=== PATIENT | male | born 1970 | race African-American/Black ===

== ENCOUNTER 2017-06-27 04:21 | Emergency (ER) | payer MEDICAID ==
[~2017-06-27] VITALS: Ht 170.2 cm; Wt 97.5 kg
[2017-06-27 04:32] VITALS: BP 158/99
== END 2017-06-27 06:16 | disposition left against medical advice (07) ==
LOC: ER 04:31
DX: R10.9 Unspecified abdominal pain (principal); Z53.21 Procedure and treatment not carried out due to patient leaving prior to being seen by health care provider

== ENCOUNTER 2017-06-27 08:08 | Emergency (ER) | payer MEDICAID ==
[~2017-06-27] VITALS: Ht 182.9 cm; Wt 108.9 kg
[2017-06-27 10:20] LABS: Urine Bilirubin Negative (Negative); Urine Blood TRACE /uL (Negative); Urine Color Yellow (Yellow); Urine Glucose Normal (Normal); Urine Ketone Negative (Negative); Urine Nitrite Negative (Negative); Urine RBC 4 /hpf (0 - 3); Urine Squamous Epithelial Cell FEW /hpf (<5); Urine Urobilinogen Normal (Negative)
[2017-06-27] MEDS ORDERED: SODIUM CHLORIDE 0.9% 1,000 ML IV ONE (10:31)
[2017-06-27] MEDS ORDERED: PROMETHAZINE HCL 25 MG/ML 1ML IV PRN (10:45)
[2017-06-27] MEDS ORDERED: KETOROLAC TROMETH 30 MG/ML 1ML VIAL IV ONE (10:45)
[2017-06-27 10:58] LABS: Hematocrit 53.2 % (41.0-53.0); Hemoglobin 18.1 g/dL (13.5-17.5); Mean Corpuscular Hemoglobin 31.6 pg (28.0-32.0); Mean Corpuscular Volume 92.8 fL (80.0-100.0); Mean Platelet Volume 8.1 fL (6.9-10.8); Platelet Count (auto) 272 10^3/uL (140-450); Red Cell Distribution Width 13.4 % (11.8-14.3); White Blood Cell 8.6 10^3/uL (4.4-10.8)
[2017-06-27 10:59] LABS: Metamyelocytes % 0; Myelocytes % 0; Promyelocytes % 0; Reactive Lymphocytes 0
[2017-06-27 11:15] LABS: Platelet Estimate Adequate
[2017-06-27 11:16] LABS: Albumin 3.8 g/dL (3.4-5.0); Bilirubin, Total 0.4 mg/dL (0.2-1.0); Calcium 8.7 mg/dL (8.5-10.1); Magnesium 2.6 mg/dL (1.6-2.6); Potassium 4.6 mmol/L (3.5-5.1); Total Protein 8.1 g/dL (6.4-8.2)
[2017-06-27 11:28] VITALS: BP 167/108
== END 2017-06-27 12:44 | disposition left against medical advice (07) ==
LOC: ER 08:08 → EDUNIT# 08:08 → EDBD 08:08 → ER 12:44
DX: R10.13 Epigastric pain (principal); I10 Essential (primary) hypertension; F17.210 Nicotine dependence, cigarettes, uncomplicated; E78.5 Hyperlipidemia, unspecified; Z90.49 Acquired absence of other specified parts of digestive tract; Z87.442 Personal history of urinary calculi; Z76.5 Malingerer [conscious simulation]
CPT/HCPCS: 36415; 71020; 74176; 80053; 81001; 83690; 83735; 85007; 85027; 93005; 94761; 96361; 96374; 96375; 99285; J1885; J2550; J7030

== ENCOUNTER 2023-03-15 15:41 | Inpatient (IN) | payer MEDICAID ==
[~2023-03-15] VITALS: Ht 182.9 cm; Wt 84.2 kg
[2023-03-15] MEDS ORDERED: PANTOPRAZOLE 40 MG/10 ML VIAL INJ IV ONE (16:30)
[2023-03-15] MEDS ORDERED: ONDANSETRON HCL 4 MG/2 ML VIAL IV ONE (16:30)
[2023-03-15] MEDS ORDERED: SODIUM CHLORIDE 0.9% 2,000 ML IV ONE (16:30)
[2023-03-15] MEDS ORDERED: MAALOX PLUS or MAALOX 30 ML PO ONE (16:30)
[2023-03-15 16:57] LABS: Basophils # (auto) 0.1 10 ^3/uL (0-0.2); Basophils % (auto) 0.9 % (0.0-2.0); Lymphocytes # (auto) 1.8 10 ^3/uL (0.4-5.4)
[2023-03-15 16:59] LABS: Eosinophils # (auto) 0 10 ^3/uL (0-0.8); Eosinophils % (auto) 0.7 % (0.0-7.0); Hematocrit 52.2 % (41.0-53.0); Hemoglobin 18.3 g/dL (13.5-17.5); Lymphocytes % (auto) 26.6 % (10.0-50.0); Mean Corpuscular Hemoglobin 31.8 pg (28.0-32.0); Monocytes # (auto) 0.6 10 ^3/uL (0-1.3); Monocytes % (auto) 8.7 % (0.0-12.0); Neutrophils # (auto) 4.2 10 ^3/uL (1.6-8.6); Neutrophils % (auto) 63.1 % (37.0-80.0); Nucleated Red Blood Cells % 0.7 %; Red Blood Cells 5.73 10^6/uL (4.5-5.90); Red Cell Distribution Width 13.4 % (11.8-14.3); White Blood Cell 6.7 10^3/uL (4.4-10.8)
[2023-03-15 17:12] LABS: Albumin 3.3 g/dL (3.4-5.0); BUN/Creatinine Ratio 10.7 (10.0-20.0); Calcium 9.1 mg/dL (8.5-10.1)
[2023-03-15 17:14] LABS: Bilirubin, Total 0.7 mg/dL (0.2-1.0); Total Protein 7.7 g/dL (6.4-8.2)
[2023-03-15 17:21] LABS: Potassium 2.8 mmol/L (3.5-5.1)
[2023-03-15] MEDS ORDERED: POTASSIUM CHL 20 Meq TABLET PO ONE (17:30)
[2023-03-15] MEDS ORDERED: fentaNYL CITRATE 100 MCG/2 ML VL IV ONE (21:30)
[2023-03-15] MEDS ORDERED: KETOROLAC TROMETH 30 MG/ML 1ML VIAL IV ONE (21:30)
[2023-03-15 23:33] LABS: Urine Bacteria NONE SEEN /hpf (None Seen); Urine Blood Negative /uL (Negative); Urine Specific Gravity 1.019 (1.001-1.035); Urine WBC 6 /hpf (0 - 3)
[2023-03-16] MEDS ORDERED: hydrALAZINE HCL 20 MG/ML VL IV ONE
[2023-03-16] MEDS ORDERED: NITROGLYCERIN 0.4 MG SL TAB SL PRN (02:30)
[2023-03-16] MEDS ORDERED: ONDANSETRON HCL 4 MG/2 ML VIAL IV PRN (02:30)
[2023-03-16] MEDS ORDERED: MORPHINE SULFATE INJ 2 MG/ml SYRG IV PRN ×2 (02:30)
[2023-03-16] MEDS ORDERED: ACETAMINOPHEN 325 MG TAB PO PRN (02:30)
[2023-03-16] MEDS: SODIUM CHLORIDE 0.9% 1,000 ML IV SCH ×3 (03:18→19:59)
[2023-03-16] MEDS: levoFLOXacin 500MG 100 ML IV SCH (03:18)
[2023-03-16] MEDS: HYDROcodone-ACET 5/325MG TAB PO PRN (08:21)
[2023-03-16] MEDS: ENOXAPARIN SOD 40 MG/0.4 ML SYRINGE SC SCH (10:29)
[2023-03-17] MEDS: SODIUM CHLORIDE 0.9% 1,000 ML IV SCH ×3 (03:30→20:27)
[2023-03-17] MEDS: hydrALAZINE HCL 20 MG/ML VL IV PRN ×3 (04:30→21:23)
[2023-03-17 05:00] VITALS: BP 175/123
[2023-03-17 05:45] LABS: Basophils # (auto) 0 10 ^3/uL (0-0.2); Basophils % (auto) 0.4 % (0.0-2.0); Eosinophils # (auto) 0.1 10 ^3/uL (0-0.8); Hematocrit 42.4 % (41.0-53.0); Hemoglobin 14.6 g/dL (13.5-17.5); Lymphocytes # (auto) 2.1 10 ^3/uL (0.4-5.4); Lymphocytes % (auto) 35.3 % (10.0-50.0); Mean Corpuscular Hemoglobin 32.1 pg (28.0-32.0); Mean Corpuscular Hgb Conc. 34.4 g/dL (32.0-36.0); Mean Corpuscular Volume 93.2 fL (80.0-100.0); Monocytes # (auto) 0.5 10 ^3/uL (0-1.3); Monocytes % (auto) 9.2 % (0.0-12.0); Neutrophils # (auto) 3.2 10 ^3/uL (1.6-8.6); Neutrophils % (auto) 53.1 % (37.0-80.0); Nucleated Red Blood Cells % 0.1 %; Red Blood Cells 4.55 10^6/uL (4.5-5.90); Red Cell Distribution Width 13.2 % (11.8-14.3)
[2023-03-17 06:03] LABS: Potassium 3.9 mmol/L (3.5-5.1)
[2023-03-17 06:12] LABS: Albumin 2.9 g/dL (3.4-5.0); BUN/Creatinine Ratio 9.3 (10.0-20.0); Bilirubin, Total 0.6 mg/dL (0.2-1.0); Calcium 8.2 mg/dL (8.5-10.1); Total Protein 6.2 g/dL (6.4-8.2)
[2023-03-17 09:14] VITALS: BP 176/100
[2023-03-17] MEDS: PANTOPRAZOLE 40 MG TAB PO SCH (10:03)
[2023-03-17] MEDS: LOSARTAN POTASSIUM 25 MG TAB PO SCH (10:04)
[2023-03-17] MEDS: levoFLOXacin 500MG 100 ML IV SCH (10:04)
[2023-03-17] MEDS: ENOXAPARIN SOD 40 MG/0.4 ML SYRINGE SC SCH (10:04)
[2023-03-17 13:00] VITALS: BP 170/100
[2023-03-17] MEDS ORDERED: LOSARTAN POTASSIUM 25 MG TAB PO ONE (16:45)
[2023-03-17 17:08] VITALS: BP 153/102
[2023-03-17] MEDS: HYDROcodone-ACET 5/325MG TAB PO PRN (20:24)
[2023-03-17 22:00] VITALS: BP 170/111
[2023-03-17 22:50] VITALS: BP 163/91
[2023-03-18] MEDS: hydrALAZINE HCL 20 MG/ML VL IV PRN (01:21)
[2023-03-18] MEDS ORDERED: cloNIDine HCL 0.1 MG TAB PO PRN ×2 (03:30→03:45)
[2023-03-18] MEDS: SODIUM CHLORIDE 0.9% 1,000 ML IV SCH ×2 (04:30→12:53)
[2023-03-18 05:11] VITALS: BP 163/101
[2023-03-18 09:00] VITALS: BP 164/143
[2023-03-18] MEDS ORDERED: cefTRIAXone 1GM/50ML D5W 50 ML IV SCH (09:00)
[2023-03-18] MEDS: PANTOPRAZOLE 40 MG TAB PO SCH (09:11)
[2023-03-18] MEDS: ENOXAPARIN SOD 40 MG/0.4 ML SYRINGE SC SCH (09:12)
[2023-03-18] MEDS: LOSARTAN POTASSIUM 25 MG TAB PO SCH (09:12)
[2023-03-18] MEDS ORDERED: LACTULOSE 20Gm/30ML SOLN PO SCH (10:00)
[2023-03-18] MEDS ORDERED: LOSARTAN POTASSIUM 25 MG TAB PO ONE (12:45)
[2023-03-18] MEDS ORDERED: CLON0.1T PO ×2 (12:50)
[2023-03-18] MEDS ORDERED: LOSA50TA46 PO (12:50)
[2023-03-18 13:00] VITALS: BP 169/84
[2023-03-18 15:38] VITALS: BP 175/99
[2023-03-19] MEDS ORDERED: LOSARTAN POTASSIUM 50 MG TAB PO SCH (10:00)
== END 2023-03-18 16:24 | disposition home or self-care (01) | DRG 465 ==
LOC: ER 15:41 → EDBD 15:41 → TELE 03-16 02:29 → TELE-WESTW 03-16 22:42
PROVIDERS: ADMIT Internal Medicine; ATTEND Internal Medicine
DX: N20.0 Calculus of kidney (principal); K56.7 Ileus, unspecified; K74.60 Unspecified cirrhosis of liver; E87.6 Hypokalemia; I10 Essential (primary) hypertension; E78.5 Hyperlipidemia, unspecified; F17.210 Nicotine dependence, cigarettes, uncomplicated; I16.0 Hypertensive urgency; F19.10 Other psychoactive substance abuse, uncomplicated; K57.30 Diverticulosis of large intestine without perforation or abscess without bleeding; N39.0 Urinary tract infection, site not specified; Z88.0 Allergy status to penicillin; Z87.442 Personal history of urinary calculi; Z90.49 Acquired absence of other specified parts of digestive tract; Z91.199 Patient's noncompliance with other medical treatment and regimen due to unspecified reason
CPT/HCPCS: 36415; 74018; 74176; 80053; 81001; 83690; 85025; 93005; 99291; C9113; G0378; J0696; J1885; J1956; J2405

== ENCOUNTER 2023-06-05 20:39 | Inpatient (IN) | payer MEDICAID ==
[~2023-06-05] VITALS: Ht 170.2 cm; Wt 82.5 kg
[~2023-06-05 20:39] MED LIST: LOSA50TA46 PO
[2023-06-05 22:09] LABS: Basophils # (auto) 0.1 10 ^3/uL (0-0.2); Basophils % (auto) 1.2 % (0.0-2.0); Eosinophils # (auto) 0.1 10 ^3/uL (0-0.8); Eosinophils % (auto) 2.1 % (0.0-7.0); Hematocrit 43.7 % (41.0-53.0); Lymphocytes # (auto) 2.7 10 ^3/uL (0.4-5.4); Lymphocytes % (auto) 39.2 % (10.0-50.0); Mean Corpuscular Hemoglobin 31.9 pg (28.0-32.0); Mean Corpuscular Hgb Conc. 34.3 g/dL (32.0-36.0); Mean Corpuscular Volume 93.2 fL (80.0-100.0); Monocytes # (auto) 0.6 10 ^3/uL (0-1.3); Monocytes % (auto) 8.6 % (0.0-12.0); Neutrophils # (auto) 3.4 10 ^3/uL (1.6-8.6); Neutrophils % (auto) 48.9 % (37.0-80.0); Nucleated Red Blood Cells % 0.1 %; Red Blood Cells 4.69 10^6/uL (4.5-5.90); Red Cell Distribution Width 13.1 % (11.8-14.3); White Blood Cell 6.9 10^3/uL (4.4-10.8)
[2023-06-05 22:23] LABS: Alanine Aminotransferase 13 U/L (7-40); Alkaline Phosphatase 94 U/L (46-116); Anion Gap 3.6 (5-15); Aspartate Aminotransferase 13 U/L (13-40); BUN/Creatinine Ratio 10.3 (10.0-20.0); Bilirubin, Total 0.2 mg/dL (0.2-1.0); Blood Urea Nitrogen 12 mg/dL (9-23); Calcium 8.8 mg/dL (8.5-10.1); Carbon Dioxide 30.4 mmol/L (20-30); Chloride 107 mmol/L (98-107); Glucose 93 mg/dL (74-106); Lipase 47 U/L (12-53); Potassium 3.3 mmol/L (3.5-5.1); Sodium 141 mmol/L (136-145)
[2023-06-05 22:24] LABS: Total Protein 6.7 g/dL (5.7-8.2)
[2023-06-05] MEDS ORDERED: KETOROLAC TROMETH 30 MG/ML 1ML VIAL IV ONE (22:45)
[2023-06-05] MEDS ORDERED: LACTATED RINGER'S 1,000 ML IV ONE (22:45)
[2023-06-06] VITALS (7 sets, daily range): BP systolic 154–174; BP diastolic 85–91; PULSE 63–78; RESP 12–16; TEMP 97.9–98.3; O2SAT 94–98
[2023-06-06] MEDS ORDERED: NITROGLYCERIN 0.4 MG SL TAB SL PRN (02:15)
[2023-06-06] MEDS ORDERED: ACETAMINOPHEN 325 MG TAB PO PRN (02:15)
[2023-06-06] MEDS ORDERED: ONDANSETRON HCL 4 MG/2 ML VIAL IV PRN (02:15)
[2023-06-06] MEDS ORDERED: DOCUSATE SOD 100 MG CAP PO PRN (02:15)
[2023-06-06] MEDS ORDERED: MORPHINE SULFATE INJ 2 MG/ml SYRG IV PRN (02:15)
[2023-06-06 04:45] LABS: Basophils # (auto) 0.1 10 ^3/uL (0-0.2); Basophils % (auto) 0.8 % (0.0-2.0); Eosinophils # (auto) 0.2 10 ^3/uL (0-0.8); Eosinophils % (auto) 2.7 % (0.0-7.0); Hematocrit 43.8 % (41.0-53.0); Hemoglobin 15.1 g/dL (13.5-17.5); Lymphocytes # (auto) 3.1 10 ^3/uL (0.4-5.4); Mean Corpuscular Hemoglobin 32.5 pg (28.0-32.0); Mean Corpuscular Hgb Conc. 34.6 g/dL (32.0-36.0); Monocytes # (auto) 0.5 10 ^3/uL (0-1.3); Monocytes % (auto) 7.9 % (0.0-12.0); Neutrophils # (auto) 2.8 10 ^3/uL (1.6-8.6); Neutrophils % (auto) 42.6 % (37.0-80.0); Nucleated Red Blood Cells % 0.1 %; Red Blood Cells 4.66 10^6/uL (4.5-5.90); Red Cell Distribution Width 13.3 % (11.8-14.3); White Blood Cell 6.7 10^3/uL (4.4-10.8)
[2023-06-06 05:03] LABS: Alanine Aminotransferase 14 U/L (7-40); Alkaline Phosphatase 98 U/L (46-116); Anion Gap 1.6 (5-15); Aspartate Aminotransferase 16 U/L (13-40); BUN/Creatinine Ratio 9.8 (10.0-20.0); Bilirubin, Total 0.4 mg/dL (0.2-1.0); Blood Urea Nitrogen 12 mg/dL (9-23); Calcium 8.8 mg/dL (8.7-10.4); Carbon Dioxide 34.4 mmol/L (20-30); Chloride 105 mmol/L (98-107); Glucose 91 mg/dL (74-106); Potassium 3.5 mmol/L (3.5-5.1); Sodium 141 mmol/L (136-145); Total Protein 6.7 g/dL (5.7-8.2)
[2023-06-06] MEDS: SODIUM CHLOR 0.9% PF (SALINE LOCK) 10ML VIAL/SYR IV SCH ×3 (05:49→22:00)
[2023-06-06] MEDS ORDERED: levoFLOXacin 500MG 100 ML IV ONE (11:00)
[2023-06-06] MEDS ORDERED: TAMSULOSIN HYDROCHLORIDE 0.4 MG CAP PO ONE (11:00)
[2023-06-06] MEDS: MORPHINE SULFATE INJ 2 MG/ml SYRG IV PRN (11:47)
[2023-06-06] MEDS: HYDROcodone-ACET 5/325MG TAB PO PRN (15:45)
[2023-06-06 16:12] LABS: Amphetamine Screen, Urine Pos (NEGATIVE); Barbiturate Scree,Urine Neg (NEGATIVE); Benzodiazephine Screen, Urine Neg (NEGATIVE); Cannabinoid Screen, Urine Pos (NEGATIVE); Cocaine Screen, Urine Neg (NEGATIVE); Opiate Scree,Urine Neg (NEGATIVE); Phencyclidine Screen, Urine Neg (NEGATIVE)
[2023-06-06 16:14] LABS: Urine Bacteria NONE SEEN /hpf (None Seen); Urine Blood 3+ /uL (Negative); Urine Clarity HAZY (Clear); Urine Color Yellow (Yellow); Urine Mucus FEW (None Seen); Urine Protein, UAD 1+ (Negative); Urine Specific Gravity 1.021 (1.001-1.035); Urine Urobilinogen Normal (Negative); Urine WBC 43 /hpf (0 - 3); Urine pH 6.5 (5.0-8.0)
[2023-06-06] MEDS: TAMSULOSIN HYDROCHLORIDE 0.4 MG CAP PO SCH (18:58)
[2023-06-06 20:01] LABS: INR 1.04 (0.9-1.15); Partial Thromboplastin Time 31.9 SEC (24.5-34.5); Prothrombin Time 10.9 sec (9.3-11.8)
[2023-06-06 20:09] LABS: Alanine Aminotransferase 13 U/L (7-40); Albumin 3.5 g/dL (3.2-4.8); Alkaline Phosphatase 87 U/L (46-116); Anion Gap 5.2 (5-15); Aspartate Aminotransferase 14 U/L (13-40); Bilirubin, Total 0.3 mg/dL (0.2-1.0); Blood Urea Nitrogen 16 mg/dL (9-23); Calcium 8.4 mg/dL (8.5-10.1); Carbon Dioxide 28.8 mmol/L (20-30); Chloride 105 mmol/L (98-107); Glucose 103 mg/dL (74-106); Potassium 3.3 mmol/L (3.5-5.1); Sodium 139 mmol/L (136-145); Total Protein 5.9 g/dL (5.7-8.2)
[2023-06-07] VITALS (9 sets, daily range): BP systolic 148–159; BP diastolic 72–97; PULSE 62–93; RESP 16–19; TEMP 98.1–98.6; O2SAT 93–99
[2023-06-07] MEDS: hydrALAZINE HCL 20 MG/ML VL IV PRN ×2 (00:05→14:48)
[2023-06-07] MEDS ORDERED: cloNIDine HCL 0.1 MG TAB PO ONE (06:00)
[2023-06-07] MEDS: SODIUM CHLOR 0.9% PF (SALINE LOCK) 10ML VIAL/SYR IV SCH ×3 (06:00→21:53)
[2023-06-07 06:17] LABS: Basophils # (auto) 0 10 ^3/uL (0-0.2); Basophils % (auto) 0.5 % (0.0-2.0); Eosinophils # (auto) 0.2 10 ^3/uL (0-0.8); Eosinophils % (auto) 2.7 % (0.0-7.0); Hematocrit 42.2 % (41.0-53.0); Hemoglobin 14.5 g/dL (13.5-17.5); Lymphocytes # (auto) 2.2 10 ^3/uL (0.4-5.4); Mean Corpuscular Hemoglobin 32.2 pg (28.0-32.0); Mean Corpuscular Hgb Conc. 34.5 g/dL (32.0-36.0); Mean Corpuscular Volume 93.4 fL (80.0-100.0); Monocytes # (auto) 0.4 10 ^3/uL (0-1.3); Monocytes % (auto) 7.5 % (0.0-12.0); Neutrophils # (auto) 3.1 10 ^3/uL (1.6-8.6); Neutrophils % (auto) 52.3 % (37.0-80.0); Red Blood Cells 4.52 10^6/uL (4.5-5.90); Red Cell Distribution Width 13.3 % (11.8-14.3); White Blood Cell 5.9 10^3/uL (4.4-10.8)
[2023-06-07] MEDS: HYDROcodone-ACET 5/325MG TAB PO PRN (06:21)
[2023-06-07 06:39] LABS: Alanine Aminotransferase 12 U/L (7-40); Albumin 3.7 g/dL (3.2-4.8); Alkaline Phosphatase 92 U/L (46-116); Anion Gap 3.6 (5-15); Aspartate Aminotransferase 13 U/L (13-40); BUN/Creatinine Ratio 10.9 (10.0-20.0); Blood Urea Nitrogen 12 mg/dL (9-23); Calcium 8.5 mg/dL (8.7-10.4); Carbon Dioxide 32.4 mmol/L (20-30); Chloride 105 mmol/L (98-107); Glucose 93 mg/dL (74-106); Potassium 3.5 mmol/L (3.5-5.1); Sodium 141 mmol/L (136-145)
[2023-06-07 06:40] LABS: Bilirubin, Total 0.5 mg/dL (0.2-1.0); Total Protein 6.2 g/dL (5.7-8.2)
[2023-06-07] MEDS ORDERED: LACTULOSE 20Gm/30ML SOLN PO ONE (08:00)
[2023-06-07] MEDS: levoFLOXacin 500MG 100 ML IV SCH (09:22)
[2023-06-07] MEDS: LACTULOSE 20Gm/30ML SOLN PO SCH ×2 (09:36→21:44)
[2023-06-07] MEDS: LOSARTAN POTASSIUM 50 MG TAB PO SCH (09:44)
[2023-06-07 11:17] LABS: Hepatitis B Surface Antigen Negative (Negative)
[2023-06-07 11:38] LABS: Hepatitis A Ab IgM Negative
[2023-06-07 11:39] LABS: Hepatitis B Core IgM Negative; Hepatitis C Antibody Negative (Negative)
[2023-06-07] MEDS ORDERED: SODIUM CHLORIDE 0.9% 1,000 ML IV ONE (13:15)
[2023-06-07] MEDS: SODIUM CHLORIDE 0.9% 1,000 ML IV SCH (15:12)
[2023-06-07] MEDS ORDERED: CLON0.1T PO (15:14)
[2023-06-07] MEDS: TAMSULOSIN HYDROCHLORIDE 0.4 MG CAP PO SCH (18:03)
[2023-06-07] MEDS ORDERED: MAGNESIUM SULFATE 1GM/100ML 100 ML IV ONE (18:30)
[2023-06-08] MEDS: SODIUM CHLORIDE 0.9% 1,000 ML IV SCH (02:35)
[2023-06-08 05:00] VITALS: BP 152/94; PULSE 80; RESP 16; TEMP 98.1; O2SAT 94
[2023-06-08] MEDS: SODIUM CHLOR 0.9% PF (SALINE LOCK) 10ML VIAL/SYR IV SCH (05:45)
[2023-06-08] MEDS: hydrALAZINE HCL 20 MG/ML VL IV PRN ×2 (05:45→07:49)
[2023-06-08 06:37] LABS: Basophils # (auto) 0 10 ^3/uL (0-0.2); Basophils % (auto) 0.6 % (0.0-2.0); Eosinophils # (auto) 0.1 10 ^3/uL (0-0.8); Eosinophils % (auto) 2.5 % (0.0-7.0); Hematocrit 42.1 % (41.0-53.0); Hemoglobin 14.6 g/dL (13.5-17.5); Lymphocytes # (auto) 1.8 10 ^3/uL (0.4-5.4); Lymphocytes % (auto) 31.2 % (10.0-50.0); Mean Corpuscular Hemoglobin 32.5 pg (28.0-32.0); Mean Corpuscular Hgb Conc. 34.6 g/dL (32.0-36.0); Mean Corpuscular Volume 93.9 fL (80.0-100.0); Monocytes # (auto) 0.5 10 ^3/uL (0-1.3); Monocytes % (auto) 8.3 % (0.0-12.0); Neutrophils # (auto) 3.3 10 ^3/uL (1.6-8.6); Neutrophils % (auto) 57.4 % (37.0-80.0); Nucleated Red Blood Cells % 0.1 %; Red Blood Cells 4.49 10^6/uL (4.5-5.90); Red Cell Distribution Width 13.1 % (11.8-14.3); White Blood Cell 5.7 10^3/uL (4.4-10.8)
[2023-06-08 07:03] LABS: Anion Gap 5.7 (5-15); Calcium 8.3 mg/dL (8.5-10.1); Carbon Dioxide 28.3 mmol/L (20-30); Chloride 106 mmol/L (98-107); Potassium 3.4 mmol/L (3.5-5.1); Sodium 140 mmol/L (136-145)
[2023-06-08 07:09] LABS: BUN/Creatinine Ratio 9.7 (10.0-20.0); Blood Urea Nitrogen 9 mg/dL (9-23); Glucose 84 mg/dL (74-106)
[2023-06-08] MEDS: LACTULOSE 20Gm/30ML SOLN PO SCH (07:42)
[2023-06-08] MEDS: LOSARTAN POTASSIUM 50 MG TAB PO SCH (07:48)
[2023-06-08] MEDS: MORPHINE SULFATE INJ 2 MG/ml SYRG IV PRN (07:49)
[2023-06-08] MEDS: levoFLOXacin 500MG 100 ML IV SCH (07:49)
[2023-06-08 08:00] VITALS: PULSE 75; RESP 18
[2023-06-08 09:10] VITALS: BP 155/97; PULSE 79; RESP 16; TEMP 98.3; O2SAT 97
[2023-06-08] MEDS ORDERED: POTASSIUM CHL 20 Meq TABLET PO ONE (10:00)
[2023-06-08 10:27] VITALS: BP 141/85; PULSE 99
[2023-06-08] MEDS ORDERED: PANTOPRAZOLE 40 MG/10 ML VIAL INJ IV ONE (11:30)
[2023-06-08] MEDS ORDERED: LORazepam 2MG/ML-1ML VIAL IV PRN (11:30)
[2023-06-09] MEDS ORDERED: PANTOPRAZOLE 40 MG/10 ML VIAL INJ IV SCH (10:00)
== END 2023-06-08 11:53 | disposition left against medical advice (07) | DRG 46 ==
LOC: ER 20:39 → OVERFLOW 06-06 02:19 → WEST WING 06-06 09:52 → TELE-WESTW 06-06 19:30
PROVIDERS: ADMIT Internal Medicine; ATTEND Internal Medicine
DX: I65.29 Occlusion and stenosis of unspecified carotid artery (principal); E86.0 Dehydration; Q89.09 Congenital malformations of spleen; N13.6 Pyonephrosis; K74.60 Unspecified cirrhosis of liver; I49.9 Cardiac arrhythmia, unspecified; E78.5 Hyperlipidemia, unspecified; E87.6 Hypokalemia; F17.210 Nicotine dependence, cigarettes, uncomplicated; Z53.29 Procedure and treatment not carried out because of patient's decision for other reasons; K42.9 Umbilical hernia without obstruction or gangrene; F12.90 Cannabis use, unspecified, uncomplicated; F19.10 Other psychoactive substance abuse, uncomplicated; R91.1 Solitary pulmonary nodule; F15.10 Other stimulant abuse, uncomplicated; R94.31 Abnormal electrocardiogram [ECG] [EKG]; I10 Essential (primary) hypertension; Z88.0 Allergy status to penicillin; Z87.442 Personal history of urinary calculi; Z90.49 Acquired absence of other specified parts of digestive tract; N40.1 Benign prostatic hyperplasia with lower urinary tract symptoms
CPT/HCPCS: 36415; 71045; 74176; 80048; 80053; 80074; 80307; 81001; 82140; 82607; 83036; 83690; 83735; 84443; 85025; 85379; 85610; 85730; 93005; 93306; 93886; 96361; 96374; C9113; G0378; J1885; J1956